=== PATIENT | male | born 1970 | race Caucasian/White ===

== ENCOUNTER 2017-03-21 17:45 | Inpatient (IN) | payer OTHER ==
[~2017-03-21] VITALS: Ht 177.8 cm; Wt 85.9 kg
[2017-03-21 19:35] LABS: CALCIUM 8.8 mg/dL (8.5-10.1); CARBON DIOXIDE 24.7 mmol/L (21-32); CHLORIDE SERUM 97 mmol/L (98-107); CREATININE SERUM 0.8 mg/dL (0.7-1.3); GFR1 > 60 mL/min; GLUCOSE SERUM 89 mg/dL (74-106); POTASSIUM SERUM 3.6 mmol/L (3.5-5.1); SODIUM SERUM 139 mmol/L (136-145)
[2017-03-21 19:36] LABS: PLATELET COUNT 151 x10^3mcL (130-400)
[2017-03-21 19:42] LABS: ALBUMIN 4.3 g/dL (3.4-5.0); ALKALINE PHOSPHATASE 60 U/L (46-116); ALT/SGPT 95 U/L (16-63); AST/SGOT 110 U/L (15-37)
[2017-03-21 19:44] LABS: TOTAL PROTEIN, SERUM 8.3 g/dL (6.4-8.2)
[2017-03-21] MEDS ORDERED: NEU300 PO (19:51)
[2017-03-21 20:00] LABS: RED CELL DISTRIBUTION WIDTH 16.4 % (11.5-14.5)
[2017-03-21 20:11] LABS: BAND NEUTROPHIL 0 % (0-10); BASOPHIL 0 % (0-2); MONOCYTE 15 % (0-7); SEGMENTED NEUTROPHILS 46 % (37-75); rbc morphology (normal/abnorm) ABNORMAL (NORMAL)
[2017-03-21 20:18] LABS: MAGNESIUM 1.9 mg/dL (1.8-2.4); PHOSPHOROUS 3.8 mg/dL (2.5-4.9)
[2017-03-21 20:27] LABS: T3 TOTAL 0.82 ng/mL
[2017-03-21 20:40] VITALS: BP 124/77
[2017-03-21 20:42] LABS: T4(THYROXINE) 8.3 ug/dL (4.7-13.3)
[2017-03-21 20:45] VITALS: Ht 177.8 cm; Wt 85.9 kg
[2017-03-22 05:17] VITALS: BP 107/65
[2017-03-22 07:22] LABS: PLATELET COUNT 99 x10^3mcL (130-400); RED CELL DISTRIBUTION WIDTH 16.5 % (11.5-14.5)
[2017-03-22 08:12] LABS: UA SPECIFIC GRAVITY 1.015 (1.005-1.035); microscopic required? YES; urine erythrocyte NEGATIVE (NEGATIVE)
[2017-03-22 08:52] LABS: AMPHETAMINE QUAL UR NONE DETECTED (NEG <=1000)
[2017-03-22 09:28] VITALS: BP 106/65
[2017-03-22 09:49] LABS: BAND NEUTROPHIL 4 % (0-10); SEGMENTED NEUTROPHILS 52 % (37-75)
[2017-03-22 09:50] LABS: MONOCYTE 12 % (0-7); PLATELET MORPHOLOGY PLATELETS DECREASED; rbc morphology (normal/abnorm) NORMAL (NORMAL)
[2017-03-22 11:20] LABS: CALCIUM 8.1 mg/dL (8.5-10.1); CARBON DIOXIDE 25.1 mmol/L (21-32); CHLORIDE SERUM 105 mmol/L (98-107); CREATININE SERUM 0.8 mg/dL (0.7-1.3); GFR1 > 60 mL/min; GLUCOSE SERUM 66 mg/dL (74-106); PHOSPHOROUS 3.5 mg/dL (2.5-4.9); POTASSIUM SERUM 4.1 mmol/L (3.5-5.1); SODIUM SERUM 142 mmol/L (136-145)
[2017-03-22 14:14] VITALS: BP 120/70
[2017-03-22 16:26] VITALS: BP 119/63
[2017-03-22 19:30] VITALS: BP 112/58
[2017-03-22 21:28] VITALS: BP 127/79
[2017-03-23 05:38] VITALS: BP 115/68
[2017-03-23 08:04] LABS: CALCIUM 8.4 mg/dL (8.5-10.1); CARBON DIOXIDE 26.6 mmol/L (21-32); CHLORIDE SERUM 100 mmol/L (98-107); CREATININE SERUM 0.7 mg/dL (0.7-1.3); GFR1 > 60 mL/min; GLUCOSE SERUM 89 mg/dL (74-106); MAGNESIUM 1.6 mg/dL (1.8-2.4); PHOSPHOROUS 2.9 mg/dL (2.5-4.9); POTASSIUM SERUM 3.3 mmol/L (3.5-5.1); SODIUM SERUM 136 mmol/L (136-145)
[2017-03-23 09:24] LABS: BASOPHIL % 0.5 % (0-2)
[2017-03-23 09:41] LABS: PLATELET COUNT 86 x10^3mcL (130-400)
[2017-03-23 09:52] VITALS: BP 144/87
[2017-03-23 17:23] VITALS: BP 139/87
[2017-03-23 21:33] VITALS: BP 129/90
[2017-03-24 05:44] VITALS: BP 147/97
[2017-03-24 06:26] LABS: CALCIUM 9.1 mg/dL (8.5-10.1); CARBON DIOXIDE 31.6 mmol/L (21-32); CHLORIDE SERUM 97 mmol/L (98-107); CREATININE SERUM 0.7 mg/dL (0.7-1.3); GFR1 > 60 mL/min; GLUCOSE SERUM 107 mg/dL (74-106); MAGNESIUM 1.9 mg/dL (1.8-2.4); PHOSPHOROUS 3.4 mg/dL (2.5-4.9); POTASSIUM SERUM 3.7 mmol/L (3.5-5.1); SODIUM SERUM 137 mmol/L (136-145)
[2017-03-24 07:18] LABS: PLATELET COUNT 81 x10^3mcL (130-400); RED CELL DISTRIBUTION WIDTH 14.9 % (11.5-14.5)
[2017-03-24 09:48] VITALS: BP 152/99
[2017-03-24 10:45] LABS: BAND NEUTROPHIL 12 % (0-10); BASOPHIL 0 % (0-2); MONOCYTE 8 % (0-7); SEGMENTED NEUTROPHILS 64 % (37-75)
[2017-03-24] MEDS ORDERED: MECLIZINE HYDRO25 M1 PO (14:26)
[2017-03-24 14:30] VITALS: BP 152/99
[2017-03-24] MEDS ORDERED: ATIVAN1 MG PO (15:59)
[2017-03-24] MEDS ORDERED: NORCO1 TA2 PO (15:59)
[2017-03-24] MEDS ORDERED: COLACE100 MG PO (16:04)
== END 2017-03-24 16:17 | disposition home or self-care (01) | DRG 896 ==
LOC: ED 17:45 → DU 19:25 → MU 19:25 → DU 20:33 → MU 03-23 11:41
PROVIDERS: Emergency Medicine; Family Medicine; ADMIT Family Medicine
DX: F10.239 Alcohol dependence with withdrawal, unspecified (principal); G92 Toxic encephalopathy; K85.20 Alcohol induced acute pancreatitis without necrosis or infection; E43 Unspecified severe protein-calorie malnutrition; N17.0 Acute kidney failure with tubular necrosis; F10.229 Alcohol dependence with intoxication, unspecified; E78.5 Hyperlipidemia, unspecified; D72.819 Decreased white blood cell count, unspecified; F41.9 Anxiety disorder, unspecified; Z68.29 Body mass index [BMI] 29.0-29.9, adult; D69.59 Other secondary thrombocytopenia; E16.2 Hypoglycemia, unspecified
CPT/HCPCS: 82962; 83880; 84439; B4164; G0480; J2060; J2405; J3230; J3411; J3475; J3490; J7030; Q0092